=== PATIENT | male | born 1955 | race Caucasian/White ===

== ENCOUNTER → 2016-11-07 | Outpatient (CLI) | payer OTHER | LOC: OPSV 09:00 → CT 11:00 | DX: Z08 Encounter for follow-up examination after completed treatment for malignant neoplasm (principal); Z85.038 Personal history of other malignant neoplasm of large intestine; R06.02 Shortness of breath; R10.9 Unspecified abdominal pain; R11.2 Nausea with vomiting, unspecified; R97.0 Elevated carcinoembryonic antigen [CEA]; K63.89 Other specified diseases of intestine | CPT/HCPCS: 71260; 74160; 96360; 96361; J7030; J7050; Q9962 ==